=== PATIENT | female | born 1995 | race Caucasian/White ===

== ENCOUNTER 2021-03-21 09:56 | Emergency (ER) | payer OTHER ==
[~2021-03-21] VITALS: Ht 154.9 cm; Wt 63.0 kg
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
--- NOTE | 2021-03-21 10:52 | NUR ---
DR ABREU AT THE BEDSIDE
[2021-03-21] MEDS ORDERED: ACETAMINOPHEN ES 500 MG TABLET PO ONE (11:00)
[2021-03-21] MEDS ORDERED: IBUPROFEN 600 MG TABLET PO ONE (11:00)
[2021-03-21] MEDS ORDERED: ACETAMINOPHEN ES 500 MG TABLET ONE (11:28)
[2021-03-21] MEDS ORDERED: IBUPROFEN 600 MG TABLET ONE (11:29)
--- NOTE | 2021-03-21 11:30 | NUR ---
URINE COLLECTED AND SENT TO THE LAB
[2021-03-21] MEDS ORDERED: IV NS 0.9% 250 ML IV ONE (12:20)
[2021-03-21] MEDS ORDERED: IOHEXOL-300 100 ML VIAL IV ONE (12:20)
[2021-03-21] MEDS ORDERED: CT SWABBABLE VALVE TRANS SET 1 EA INFUS.SET MC ONE (12:20)
[2021-03-21] MEDS ORDERED: IBUP-1957 PO (13:21)
--- NOTE | 2021-03-21 13:31 | NUR ---
IV removed. Catheter intact and site benign. Pressure and 4x4 applied to site. No bleeding noted.Patient discharged to home in stable condition. Written and verbal after care instructions given. Patient verbalizes understanding of instruction.
[2021-03-21 13:32] VITALS: BP 105/62
== END 2021-03-21 13:33 | disposition home or self-care (01) ==
LOC: ER 10:02
DX: S16.1XXA Strain of muscle, fascia and tendon at neck level, initial encounter (principal); S20.219A Contusion of unspecified front wall of thorax, initial encounter; S70.01XA Contusion of right hip, initial encounter; S09.8XXA Other specified injuries of head, initial encounter; V43.52XA Car driver injured in collision with other type car in traffic accident, initial encounter; Y93.55 Activity, bike riding; Y92.89 Other specified places as the place of occurrence of the external cause; Y99.8 Other external cause status
CPT/HCPCS: 70450; 71045; 72125; 74177; 84703; 99285; J7050; Q9967